=== PATIENT | female | born 1970 | race Caucasian/White ===

== ENCOUNTER 2018-09-09 13:30 | Emergency (ER) | payer SELFPAY ==
[2018-09-09] MEDS: ACETAMINOPHEN 325 MG TAB PO (16:52)
[2018-09-09] MEDS: SOD CHLORIDE 0.9% 1,000 ML IV ×2 (16:52→18:40)
[2018-09-09] MEDS: KETOROLAC 15 MG INJ IV (16:53)
[2018-09-09] MEDS: ONDANSETRON 4 MG INJ IV (16:53)
[2018-09-09 17:02] LABS: ADD MAN DIFF? NO
[2018-09-09 17:03] LABS: WHITE BLOOD COUNT 15.9 10^3/ul (4.8-10.8)
[2018-09-09 17:03] LABS: ABNORMAL IP MESSAGE 1; BASOPHIL # 0.1 10^3/ul (0.0-0.1); BASOPHILS % 0.4 % (0.0-2.0); HEMATOCRIT 31.1 % (37.0-47.0); HEMOGLOBIN 9.8 g/dl (12.0-16.0); LYMPHOCYTES # 2.5 10^3/ul (0.8-2.9); LYMPHOCYTES % 15.6 % (15.0-51.0); MEAN CORPUSCULAR HEMOGLOBIN 23.8 pg (29.0-33.0); MEAN CORPUSCULAR HGB CONC 31.5 g/dl (32.0-37.0); MEAN CORPUSCULAR VOLUME 75.7 fl (82.0-101.0); MONOCYTE # 1.6 10^3/ul (0.3-0.9); NEUTROPHIL # 11.6 10^3/ul (1.6-7.5); NEUTROPHILS % 73.4 % (39.0-77.0); PLATELET COUNT 299 10^3/UL (140-415); RED BLOOD COUNT 4.11 10^6/ul (4.20-5.40); RED CELL DISTRIBUTION WIDTH 15.7 % (11.5-14.5)
[2018-09-09 17:23] LABS: ALANINE AMINOTRANSFERASE 11 IU/L (13-69); ALBUMIN 4.3 g/dl (3.3-4.9); ALKALINE PHOSPHATASE 80 IU/L (42-121); ANION GAP 12 (5-13); ASPARTATE AMINO TRANSFERASE 23 IU/L (15-46); BILIRUBIN,INDIRECT 0.3 mg/dl (0-1.1); BILIRUBIN,TOTAL 0.3 mg/dl (0.2-1.3); BLOOD UREA NITROGEN 11 mg/dl (7-20); CALCIUM 8.9 mg/dl (8.4-10.2); CARBON DIOXIDE 27 mmol/L (21-31); CHLORIDE 96 mmol/L (97-110); CREATININE 1.42 mg/dl (0.44-1.00); Estimated GFR 40 mL/min (>60); GLUCOSE 111 mg/dl (70-220); LIPASE 58 U/L (23-300); POTASSIUM 3.8 mmol/L (3.5-5.1); SODIUM 135 mmol/L (135-144); TOTAL PROTEIN 8.2 g/dl (6.1-8.1)
[2018-09-09 17:24] LABS: POSITIVE DIFF @See below
[2018-09-09 17:28] LABS: UR BILIRUBIN (Dip) NEGATIVE (NEGATIVE); UR BLOOD (Dip) 3+ mg/dL (NEGATIVE); UR CLARITY CLOUDY (CLEAR); UR COLOR AMBER (YELLOW); UR GLUCOSE (Dip) NEGATIVE (NEGATIVE); UR KETONES (Dip) NEGATIVE (NEGATIVE); UR TOTAL PROTEIN (Dip) 2+ mg/dl (NEGATIVE); URINE PH (Dip) 5 (5.0-9.0)
[2018-09-09 17:29] LABS: ADD UMIC YES; UR ASCORBIC ACID 40 mg/dL (NEGATIVE); UR LEUKOCYTE ESTERASE (Dip) 3+ Leu/ul (NEGATIVE); UR NITRITE (Dip) POSITIVE (NEGATIVE); UR UROBILINOGEN (Dip) 0.2 E.U./dL mg/dL (NEGATIVE)
[2018-09-09 17:37] LABS: UR BACTERIA MANY /HPF (NONE SEEN); UR MUCUS MODERATE /HPF (NONE SEEN); UR RBC 8 /HPF (0-5); UR SQUAMOUS EPITHELIAL CELL MANY /HPF (FEW); UR WBC 126 /HPF (0-5)
[2018-09-09] MEDS: CEFTRIAXONE 1 GM/50 ML (PMX) 50 ML IVPB (18:39)
== END 2018-09-09 20:14 | disposition home or self-care (01) ==
LOC: FTE 13:30
DX: N12 Tubulo-interstitial nephritis, not specified as acute or chronic (principal)
CPT/HCPCS: 36415; 76775; 80053; 81001; 81025; 83690; 85025; 87086; 96365; 96375; 99285-25

== ENCOUNTER 2019-01-17 12:49 | Emergency (ER) | payer OTHER ==
[2019-01-17] MEDS: ONDANSETRON 4 MG INJ IV (15:57)
[2019-01-17] MEDS: morphine 4 MG/ML VIAL IV ×2 (15:57→17:55)
[2019-01-17 15:58] LABS: ADD MAN DIFF? NO
[2019-01-17] MEDS: SOD CHLORIDE 0.9% 1,000 ML IV (15:58)
[2019-01-17 16:00] LABS: ABNORMAL IP MESSAGE 1; BASOPHIL # 0.1 10^3/ul (0.0-0.1); BASOPHILS % 0.4 % (0.0-2.0); EOSINOPHILS % 0.2 % (0.0-7.0); HEMATOCRIT 27.8 % (37.0-47.0); HEMOGLOBIN 8.6 g/dl (12.0-16.0); LYMPHOCYTES # 2.9 10^3/ul (0.8-2.9); LYMPHOCYTES % 17.2 % (15.0-51.0); MEAN CORPUSCULAR HEMOGLOBIN 22.3 pg (29.0-33.0); MEAN CORPUSCULAR HGB CONC 30.9 g/dl (32.0-37.0); MEAN PLATELET VOLUME 9.6 fl (7.4-10.4); MONOCYTE # 1.7 10^3/ul (0.3-0.9); MONOCYTES % 9.8 % (0.0-11.0); NEUTROPHIL # 12.2 10^3/ul (1.6-7.5); NEUTROPHILS % 71.9 % (39.0-77.0); PLATELET COUNT 397 10^3/UL (140-415); RED BLOOD COUNT 3.86 10^6/ul (4.20-5.40); RED CELL DISTRIBUTION WIDTH 16.6 % (11.5-14.5)
[2019-01-17 16:04] LABS: ADD UMIC YES; UR ASCORBIC ACID NEGATIVE (NEGATIVE); UR BACTERIA FEW /HPF (NONE SEEN); UR BILIRUBIN (Dip) NEGATIVE (NEGATIVE); UR BLOOD (Dip) 1+ mg/dL (NEGATIVE); UR CLARITY CLOUDY (CLEAR); UR COLOR AMBER (YELLOW); UR GLUCOSE (Dip) NEGATIVE (NEGATIVE); UR KETONES (Dip) NEGATIVE (NEGATIVE); UR LEUKOCYTE ESTERASE (Dip) 2+ Leu/ul (NEGATIVE); UR MUCUS FEW /HPF (NONE SEEN); UR NITRITE (Dip) NEGATIVE (NEGATIVE); UR RBC 8 /HPF (0-5); UR SPECIFIC GRAVITY (Dip) 1.019 (1.003-1.030); UR SQUAMOUS EPITHELIAL CELL MANY /HPF (FEW); UR TOTAL PROTEIN (Dip) 2+ mg/dl (NEGATIVE); UR UROBILINOGEN (Dip) NEGATIVE (NEGATIVE); UR WBC 40 /HPF (0-5)
[2019-01-17 16:12] LABS: POSITIVE DIFF @See below
[2019-01-17 16:17] LABS: ALANINE AMINOTRANSFERASE 20 IU/L (13-69); ALBUMIN 4.3 g/dl (3.3-4.9); ALBUMIN/GLOBULIN RATIO 0.97; ALKALINE PHOSPHATASE 91 IU/L (42-121); ANION GAP 12 (5-13); ASPARTATE AMINO TRANSFERASE 21 IU/L (15-46); BILIRUBIN,INDIRECT 0.6 mg/dl (0-1.1); BILIRUBIN,TOTAL 0.6 mg/dl (0.2-1.3); BLOOD UREA NITROGEN 8 mg/dl (7-20); CALCIUM 9.1 mg/dl (8.4-10.2); CARBON DIOXIDE 24 mmol/L (21-31); CHLORIDE 102 mmol/L (97-110); CREATININE 1.39 mg/dl (0.44-1.00); Estimated GFR 41 mL/min (>60); GLUCOSE 108 mg/dl (70-220); LIPASE 88 U/L (23-300); POTASSIUM 3.6 mmol/L (3.5-5.1); SODIUM 138 mmol/L (135-144); TOTAL PROTEIN 8.7 g/dl (6.1-8.1)
[2019-01-17] MEDS: CEFEPIME 2GM/50 ML (PMX) 50 ML IVPB (17:55)
[2019-01-17] MEDS: DOXYCYCLINE 100 MG TAB PO (19:28)
[2019-01-17] MEDS: metroNIDAZOLE 500 MG TAB PO (20:40)
== END 2019-01-17 21:16 | disposition short-term general hospital (02) ==
LOC: E/R 12:49
DX: A41.9 Sepsis, unspecified organism (principal); N76.0 Acute vaginitis
CPT/HCPCS: 36415; 74176; 76830; 76856; 80053; 81001; 83605; 83690; 84703; 85025; 87040-91; 87086; 87210; 87591; 96374; 96375; 96376; 99285-25